=== PATIENT | female | born 1990 | race Two or more races ===

== ENCOUNTER 2019-01-18 00:02 | Emergency (ER) | payer MEDICAID ==
[~2019-01-18] VITALS: Ht 167.6 cm; Wt 52.2 kg
[2019-01-18 00:49] VITALS: BP 131/92
== END 2019-01-18 04:23 | disposition left against medical advice (07) ==
LOC: ER 00:17
DX: F41.9 Anxiety disorder, unspecified (principal); R20.0 Anesthesia of skin; R07.89 Other chest pain; Z53.21 Procedure and treatment not carried out due to patient leaving prior to being seen by health care provider
CPT/HCPCS: 93005